=== PATIENT | male | born 2000 | race Hispanic/Latino ===

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

== ENCOUNTER 2022-06-13 09:25 | Emergency (ER) | payer MEDICAID ==
[~2022-06-13] VITALS: Ht 177.8 cm; Wt 106.1 kg
[2022-06-13 09:28] VITALS: BP 169/89
[2022-06-13] MEDS ORDERED: FLUT16H NASAL (10:22)
== END 2022-06-13 10:30 | disposition home or self-care (01) ==
LOC: EDH 09:25
DX: J06.9 Acute upper respiratory infection, unspecified (principal); Z20.822 Contact with and (suspected) exposure to COVID-19; Z90.89 Acquired absence of other organs
CPT/HCPCS: 99283; 87635; 87880; 87804 ×2; C9803

== ENCOUNTER 2022-11-20 11:12 | Emergency (ER) | payer MEDICAID ==
[~2022-11-20] VITALS: Ht 177.8 cm; Wt 104.3 kg
[~2022-11-20 11:12] MED LIST: FLUT16H NASAL
[2022-11-20 11:23] VITALS: BP 164/108
[2022-11-20] MEDS ORDERED: MUPI22OI2 TP (11:58)
[2022-11-20] MEDS ORDERED: SULF1TAB42 PO (11:58)
[2022-11-20] MEDS ORDERED: IBUP-2070 PO (11:58)
[2022-11-20] MEDS ORDERED: CEPH500C2 PO (11:58)
[2022-11-20] MEDS ORDERED: CEFTRIAXONE 1G VIAL IM ONE (12:00)
[2022-11-20] MEDS ORDERED: ACETAMINOPHEN 500 MG TABLET PO ONE (12:00)
[2022-11-20] MEDS ORDERED: KETOROLAC 60 MG VIAL (30MG/ML) IM ONE (12:00)
[2022-11-20] MEDS ORDERED: TETANUS/DIPHTHERIA TOXOID [ADULT] 0.5 ML VIAL IM ONE (12:00)
[2022-11-20] MEDS ORDERED: LIDOCAINE HCL 1% 20 ML VIAL ONE (12:19)
== END 2022-11-20 12:40 | disposition home or self-care (01) ==
LOC: EDH 11:12
DX: L03.116 Cellulitis of left lower limb (principal); Z90.89 Acquired absence of other organs
CPT/HCPCS: 99284; 90714; 96372 ×2; 90471; J0696; J1885

== ENCOUNTER 2023-05-27 17:16 | Emergency (ER) | payer MEDICAID, OTHER ==
[~2023-05-27] VITALS: Ht 177.8 cm; Wt 106.6 kg
[~2023-05-27 17:16] MED LIST changes: +CEPH500C2 PO; +IBUP-2070 PO; +MUPI22OI2 TP; +SULF1TAB42 PO
[2023-05-27 18:03] LABS: INFLUENZA TYPE A Negative For Type A (NEGATIVE); INFLUENZA TYPE B Negative For Type B (NEGATIVE); SARS-CoV-2, RNA, NAAT NEGATIVE SARS CoV-2 (NEGATIVE)
[2023-05-27 19:59] VITALS: BP 143/87; PULSE 78; RESP 18; O2SAT 98
== END 2023-05-27 20:05 | disposition home or self-care (01) ==
LOC: EDH 17:16
DX: K52.9 Noninfective gastroenteritis and colitis, unspecified (principal); Z20.822 Contact with and (suspected) exposure to COVID-19; Z79.899 Other long term (current) drug therapy; Z90.49 Acquired absence of other specified parts of digestive tract
CPT/HCPCS: 99283; 87635; 87804 ×2; C9803